=== PATIENT | male | born 1965 | race Caucasian/White ===

== ENCOUNTER 2019-10-08 13:44 | Outpatient (CLI) | payer BC, SELFPAY ==
--- NOTE | 2019-10-08 13:50 | XR_ITS ---
WS: [id number] KNEE LEFT TECHNIQUE: 2 views of the left knee CLINICAL INFORMATION: EFFUSION, LEFT KNEE, PAIN IN LEFT KNEE COMPARISON: None. FINDINGS: Left knee is normal in appearance. No evidence of acute fracture dislocation. Small suprapatellar eff usion. Mild soft tissue edema. Hypertrophic patella. XR/XR knee LT 1-2V [id number] IMPRESSION: Small suprapatellar effusion. Mild soft tissue edema. No acute fractures.
== END 2019-10-08 13:45 | disposition home or self-care (01) ==
LOC: RADWPI 13:47
PROVIDERS: Family Provider Family Medicine; PCP Family Medicine; Visit Provider Nurse Practitioner Family
DX: M25.562 Pain in left knee (principal); M25.462 Effusion, left knee; R60.9 Edema, unspecified
CPT/HCPCS: 73560

== ENCOUNTER 2021-07-30 16:19 | Outpatient (CLI) | payer BC, SELFPAY ==
--- NOTE | 2021-07-30 16:27 | XR_ITS ---
WS: [id number] Exam: XR chest 2V* [id number] Date/Time of Exam: 07/30/2021 4:29 PM Reason For Exam: COUGH, UNSPECIFIED Comparison 07/23/2018. Findings: The lungs are clear and fully expanded. Costophrenic angles are sharp. No infiltrates. Bronchovascula r relief appears normal. Cardiac silhouette is unremarkable. Bony elements are intact. XR/XR chest 2V* [id number] IMPRESSION: Unremarkable chest radiograph.
== END 2021-07-30 16:20 | disposition home or self-care (01) ==
PROVIDERS: PCP Nurse Practitioner Family; Visit Provider Nurse Practitioner Family
DX: R05.9 Cough, unspecified (principal)
CPT/HCPCS: 71046

== ENCOUNTER 2023-12-16 06:03 | Outpatient (CLI) | payer BC, SELFPAY ==
--- NOTE | 2023-12-16 06:11 | US_ITS ---
WS: [id number] Examination: US abdomen limited [id number] Reason for Exam: RUQ PAIN Date: December 16, 2023 Comparison: None. Findings: The liver is 22 cm in maximum measurement. The liver is echogenic with hepatic steatosis. No shadowin g echogenic foci are noted in the gallbladder. The gallbladder wall measures 2 mm. The common bile du ct measures 6 mm. The head and body of the pancreas are hyperechoic. The tail is not well delineated on this study. The IVC is patent in the liver. The aorta is not enlarged. The right kidney measures 12.1 x 6.1 x 5.9 cm without hydronephrosis. US/US abdomen limited [id number] Impression: There is evidence of hepatic steatosis. There is no cholelithiasis or biliary duct dilatation noted The pancreas is incompletely visualized..
== END 2023-12-16 06:04 | disposition home or self-care (01) ==
LOC: RAD 06:03
PROVIDERS: PCP Nurse Practitioner Family; Visit Provider Nurse Practitioner Family
DX: R10.11 Right upper quadrant pain (principal); K76.0 Fatty (change of) liver, not elsewhere classified
CPT/HCPCS: 76705

== ENCOUNTER 2024-02-06 07:46 | Outpatient (CLI) | payer BC, SELFPAY ==
--- NOTE | 2024-02-06 08:18 | NM_ITS ---
WS: [id number] NUCLEAR MEDICINE HIDA SCAN CLINICAL INFORMATION: RUQ PAIN TECHNIQUE: Following intravenous administration of 4.8 mCi of technetium 99m mebrofenin, images of th e abdomen were obtained over the course of 60 minutes. Next, gallbladder ejection fraction was determ ined by obtaining preprandial and one-hour postprandial images of the gallbladder following oral eliana stion of Ensure. COMPARISON: None. FINDINGS: Mild hepatomegaly. Gallbladder is visualized by 30 minutes. No evidence of acute cholecystitis. Sujata l common bile duct and small bowel activity. Gallbladder ejection fraction 68% within normal limits. No evidence of chronic cholecystitis. NM/NM hepatobiliary w phar* [id number] IMPRESSION: 1. No evidence of acute or chronic cholecystitis. 2. Mild hepatomegaly. 3. Gallbladder ejection fraction 68% within normal limits
== END 2024-02-06 07:47 | disposition home or self-care (01) ==
LOC: RAD 07:47
PROVIDERS: PCP Nurse Practitioner Family; Visit Provider Nurse Practitioner Family
DX: R10.11 Right upper quadrant pain (principal); K76.0 Fatty (change of) liver, not elsewhere classified
CPT/HCPCS: 78227; A9537

== ENCOUNTER 2024-07-08 16:14 | Outpatient (CLI) | payer BC, SELFPAY ==
--- NOTE | 2024-07-08 16:23 | XR_ITS ---
WS: [email or web address] Exam: XR thoracic spine 2V [id number] Date/Time of Exam: 07/08/2024 4:30 PM Reason For Exam: RUQ abdominal pain, back pain No acute fracture. There is spondylosis. Normal paraspinal soft tissues. IMPRESSION1. Degenerative change. No fracture or malalignment.
--- NOTE | 2024-07-08 16:23 | XR_ITS ---
WS: [email or web address] Exam: XR lumbar spine min 4V [id number] Date/Time of Exam: 07/08/2024 4:30 PM Reason For Exam: RUQ abdominal pain, back pain Comparison 08/18/2014. No fracture noted. Mild degenerative disc narrowing at all levels. Marked spondylosis from L2-L5. Posterior bridging osteophytes at the L4-5 and L3-4 disc levels. This could cause some spinal canal stenosis at these levels. Mild facet DJD at all levels. XR/XR lumbar spine min 4V [id number] IMPRESSION: 1. Degenerative change and spondylosis as detailed above. 2. No fracture or malalignment.
== END 2024-07-08 16:15 | disposition home or self-care (01) ==
PROVIDERS: PCP Nurse Practitioner Family; Visit Provider Nurse Practitioner Family
DX: R10.11 Right upper quadrant pain (principal); M47.894 Other spondylosis, thoracic region; M47.896 Other spondylosis, lumbar region; M51.369 Other intervertebral disc degeneration, lumbar region without mention of lumbar back pain or lower extremity pain; M25.78 Osteophyte, vertebrae
CPT/HCPCS: 72070; 72110